=== PATIENT | male | born 1980 | race Caucasian/White ===

== ENCOUNTER 2018-01-17 14:40 | Observation (INO) | payer OTHER, SELFPAY ==
[2018-01-17 14:54] VITALS: BMI 19.2
[2018-01-17 15:00] VITALS: BP 131/88; PULSE 79; RESP 18; TEMP 36.8
[2018-01-17 15:11] VITALS: BP 131/88; PULSE 79; RESP 18; TEMP 36.8; O2SAT 99
--- NOTE | 2018-01-17 15:19 | HP.PCM_ITS ---
Problem List (1) Acute opioid withdrawal Status: Acute (2) Heroin dependence Status: Chronic (3) Methadone dependence Status: Chronic (4) Tobacco dependence Status: Chronic History of Present Illness Date of Admission: 01/17/18 Chief Complaint: Muscle cramps The patient is a 37 year old M with past medical history significant for heroin and methadone dependence presents with muscle cramps. Patient reports use of IV heroine as well as snorting methadone. For the past 10 days prior to admission patient was doing straight heroin. Patient presents with muscle cramps in addition to nausea and abdominal cramps as well as irritability and restless legs. On assessment of acute opioid withdrawal was made admitted to regular nursing floor for medical stabilization Past Medical History Past Medical History (Chronic Problems): Chronic Problems Heroin dependence (Chronic) Methadone dependence (Chronic) Tobacco dependence (Chronic) Surgical History: no surgical history Tobacco Use: Chew - *Family History Maternal History Items: No pertinent history Review of Systems Constitutional: Reports: Night Sweats HEENT: Denies: Head Aches, Sinus Congestion, Sinus Drainage Cardiovascular: Denies: Chest Pain, Orthopnea, Palpitations, Paroxysmal Noc. Dyspnea Respiratory: Denies: Cough, Shortness of breath at rest, Shortness of breath upon exertion, Sputum production Gastrointestinal: Reports: Abdominal Pain, Nausea Genitourinary: Denies: Dysuria, Frequency, Hematuria, Urgency Musculoskeletal: Reports: Muscle pain. Denies: Joint Pain, Joint Tenderness Skin: Denies: Rash Neurological: Denies: Focal weakness, Numbness, Tingling Psychiatric: Reports: Anxiety Hematologic/ Lymphatic: Denies: Easy Bruising, Easy Bleeding VTE Information - Inpt Only VTE Present on Admission: No VTE Mechan Device Prophylaxis: None VTE Pharm Prophylaxis ordered?: No Reason prophylaxis not ordered:: Treatment Not Indicated Patient Problems: Active and Suspected Problems Acute opioid withdrawal (Acute) Objective: GENERAL: cooperative but appears restless HEENT: Clear conjunctiva, moist oral mucosa NECK; supple, normal thyroid, no distended JVD. CHEST: Clear to auscultation bilaterally, HEART: Regular S1 S2, no audible murmurs ABDOMEN: soft, non-tender, normoactive bowel sounds, RECTAL: deferred EXTREMITIES: No edema, no clubbing, no cyanosis. SUPPORT ASSISTANT: Awake; no lateralizing signs. SKIN: No Rash - Physical Exam Vital Signs Temp Pulse Resp BP Pulse Ox 98.2 F 79 18 131/88 H 99 01/17/18 15:11 01/17/18 15:11 01/17/18 15:11 01/17/18 15:11 01/17/18 15:11 Oxygen Delivery Method Room Air Weight: 53.977 kg Body Mass Index (BMI) 19.2 Assessment/Plan All Active Problems Acute opioid withdrawal (Acute) Patient is a 37 year old gentleman with history of heroine and methadone dependence presented with acute opiate withdrawal 1. Acute opioid withdrawal patient has been admitted to regular nursing floor for medical stabilization using Subutex 2. Heroine dependence patient was counseled on cessation 3. Methadone dependence again patient was counseled on cessation 4. Tobacco dependence counseled on cessation, offered nicotine patch for tobacco cravings 5. DVT prophylaxis low risk did encourage early ambulation Code Visit Inpatient E&M: 70441 Init Hosp L3
[2018-01-17] MEDS: chlordiazePOXIDE 25 MG Capsule PO ×2 (15:47→21:18)
[2018-01-17] MEDS: Buprenorphine HCl 2 MG TAB.SUBL SL (15:47)
[2018-01-17 15:57] LABS: Absolute Lymphocyte Count 0.95 X10^3/ul (0.83-4.51); Absolute Neutrophil Count 6.8 X10^3/uL (2.0-7.7); Basophil# 0.02 X10^3/uL; Basophil% 0.2 % (0-1); Eosinophil# 0.14 X10^3/uL; Eosinophils% 1.6 % (0-5); Hematocrit 36.6 % (40-54); Hemoglobin 11.6 g/dl (13.0-16.5); Lymphocyte # 0.95 X10^3/ul (4.0); Lymphocyte % 11.1 % (19-41); Mean Corp Hgb Conc 31.7 g/gl (32-36); Mean Corpuscular Hgb 27.2 pg (27.0-32.0); Mean Corpuscular Volume 85.9 fL (80-94); Monocyte# 0.68 X10^3/uL; Monocyte% 7.9 % (0-10); Neutrophil # 6.77 X10^3/uL (2.7-7.7); Neutrophil % 79.1 % (47-70); Platelet Count 165 K/mm3 (150-450); RBC Distribution Width CV 12.6 % (11.6-14.6); RBC Distribution Width SD 38.7 fl (35.1-43.9); Red Blood Count 4.26 M/mm3 (4.6-6.2); White Blood Count 8.6 K/mm3 (4.4-11.0)
[2018-01-17 16:01] LABS: POSITIVE COUNT NO; POSITIVE DIFFERENTIAL NO; POSITIVE MORPHOLOGY NO
[2018-01-17 16:10] LABS: International Normalized Ratio 1.1; Prothrombin Time (Protime)PT. 14.4 SECONDS (11.7-14.9)
[2018-01-17 16:12] LABS: ALB/GLOB Ratio 0.9 RATIO (0.9-2.4); AST(SGOT) 12 U/L (15-37); Alanine Aminotransfer ALT/SGPT 20 U/L (16-61); Albumin, Serum 3.5 g/dL (3.2-5.0); Alkaline Phosphatase 85 U/L (45-117); Amylase 103 U/L (25-115); Anion Gap 3 (5-15); BUN 13 mg/dL (7-18); BUN/Creat Ratio 15.7 RATIO (10-20); Calcium,Total 8.7 mg/dL (8.5-10.1); Chloride 101 mmol/L (98-107); Creatinine, Serum 0.83 mg/dL (0.70-1.30); EST Glomerular Filtration Rate 111 mL/min (>60); Est Glom Filt Rate - Afr Amer 134 mL/min (>60); Estimated Creatinine Clearance 93.03 ml/min; Glucose 91 mg/dL (74-106); Lipase 176 U/L (73-393); Potassium 4.2 mmol/L (3.5-5.1); Protein, Total 7.5 g/dL (6.4-8.2); Sodium Level 138 mmol/L (136-145)
--- NOTE | 2018-01-17 16:54 | CHAPLAIN ---
Type of Pastoral Visit _x__ Initial Visit ___ Follow-up Visit ___ On-call Visit ___ General Patient Visit ___ Spiritual Assessment ___ Family Conference ___ Bereavement ___ Rapid Response ___ Code Blue ___ Other (describe below) Pastoral Care Referral From x___ Patient ___ Family _x__ Nurse ___ Physician ___ Director Of Consumer Affairs ___ Quick Sketch Artist ___ Other (describe below) Sacrament/Intervention _x__ Active listening ___ Anointing ___ Tenriism ___ Bereavement ___ Communion _x__ Elen exploration ___ _x__ Life review _x__ Prayer ___ Reconciliation ___ Sacrament of Sick _x__ Supportive presence ___ Wedding ___ Other (describe below) Pastoral Comments patient has plans to go to a [facility] rehab [facility] where his brother has successfully had recovery; pt is open to spiritual support
[2018-01-17 17:37] VITALS: BP 114/86; PULSE 72; RESP 16; TEMP 37.1
[2018-01-17 17:56] LABS: Mucous, Urine 0 SEEN /hpf (<or=2+); Red Blood Cells-Urine 0 SEEN /hpf (0-5); Squamous Epithelial Cells - UA 0 SEEN /hpf (0-5); White Blood Cells 0 SEEN /hpf (0-5)
[2018-01-17 18:02] LABS: Color, Urine Yellow (Yellow); Glucose, Dipstick Normal (Normal); Ketone-Dipstick Negative (Negative); Leukocyte Esterase-Dipstick Negative /ul (Negative); Nitrite-Dipstick Negative (Negative); Occult Blood-Urine Negative /ul (Negative); Protein-Dipstick 15 mg/dl (Negative); Urine Bilirubin Dipstick Negative (Negative); Urine Clarity Clear (Clear); Urine Urobilinogen Normal (Normal)
[2018-01-17 18:17] LABS: Bacteria RARE /hpf (None Seen)
[2018-01-17] MEDS: Methocarbamol 750 MG Tablet PO (18:31)
[2018-01-17 18:51] LABS: Amphetamine Urine VISTA NEGATIVE (<1000 ng/mL); Barbiturate Urine VISTA NEGATIVE (< 200 ng/mL); Benzodiazepine Urine VISTA NEGATIVE (< 200 ng/mL); Cocaine Urine VISTA NEGATIVE (< 300 ng/mL); Ecstacy Urine VISTA NEGATIVE (< 500 ng/mL); Methadone Urine VISTA NEGATIVE (< 300 ng/mL); PCP Urine VISTA NEGATIVE (< 25 ng/mL); THC Urine VISTA NEGATIVE (< 50 ng/mL); Vista UDS pH Range 7
[2018-01-17 21:06] VITALS: BP 125/96; PULSE 71; PULSE 72; RESP 16; TEMP 36.7; TEMP 36.8; O2SAT 100
[2018-01-17] MEDS: traZODone 50 MG Tablet PO (21:18)
[2018-01-18] VITALS (9 sets, daily range): BP systolic 106–117; BP diastolic 69–89; PULSE 57–89; RESP 14–18; TEMP 36.5–36.8; O2SAT 98–100
[2018-01-18] MEDS: hydrOXYzine PAM 25 MG Capsule 50 MG PO (00:04)
[2018-01-18] MEDS: Buprenorphine HCl 2 MG TAB.SUBL SL ×3 (00:04→17:00)
[2018-01-18] MEDS: chlordiazePOXIDE 25 MG Capsule PO ×5 (00:05→21:30)
[2018-01-18] MEDS: Methocarbamol 750 MG Tablet PO ×2 (00:05→21:29)
[2018-01-18] MEDS: Tuberculin,Purif.prot.deriv. 50 TU/ML Vial 5 ML ID (09:51)
--- NOTE | 2018-01-18 10:52 | PCM.PN.HOSP ---
Patient Problems: Active and Suspected Problems Acute opioid withdrawal (Acute) Subjective: The patient reports some muscle cramping last night but better today Objective: Pleasant thin gentleman no acute distress Vitals/I&O's: Vital Signs Temp Pulse Resp BP Pulse Ox 97.7 F L 57 L 16 117/89 H 99 01/18/18 09:08 01/18/18 09:08 01/18/18 09:08 01/18/18 09:08 01/18/18 09:06 Oxygen Delivery Method Room Air Weight: 118 lb 15.983 oz Body Mass Index (BMI) 19.2 Intake and Output for Last 24 Hours 01/16/18 01/17/18 01/18/18 23:59 23:59 23:59 Intake Total 500 / 500 700 / 700 Balance 500 / 500 700 / 700 General: Alert, Oriented x3 Oral: Moist Mucosa Neck: No JVD Lungs: Clear to auscultation Cardiovascular: Regular rate, Regular Rhythm, - - No murmurs Abdomen: Soft, Non Tender, Non-Distended Extremities: - - Pain, no edema, sites of injection bilateral antecubital's, no erythema Laboratory Results 01/17/18 15:43: WBC 8.6, RBC 4.26 L, Hgb 11.6 L, Hct 36.6 L, MCV 85.9, MCH 27.2, MCHC 31.7 L, RDW 12.6, RDW Differential 38.7, Plt Count 165, MPV 10.0, Immature Gran % (Auto) 0.100, Neut % (Auto) 79.1 H, Lymph % (Auto) 11.1 L, Mcleod % (Auto) 7.9, Eos % (Auto) 1.6, Baso % (Auto) 0.2, Absolute Neuts (auto) 6.8, Absolute Lymphs (auto) 0.95, Total Counted Not Reportable 01/17/18 15:43: PT 14.4, INR 1.1 01/17/18 15:43: Sodium 138, Potassium 4.2, Chloride 101, Carbon Dioxide 34.0 H, Anion Gap 3 L, BUN 13, Creatinine 0.83, Estim Creat Clear Calc 93.03, Est GFR (MDRD) Af Amer 134, Est GFR (MDRD) Non-Af 111, BUN/Creatinine Ratio 15.7, Glucose 91, Calcium 8.7, Total Bilirubin 0.30, AST 12 L, ALT 20, Alkaline Phosphatase 85, Total Protein 7.5, Albumin 3.5, Globulin 4.0, Albumin/Globulin Ratio 0.9, Amylase 103, Lipase 176 01/17/18 15:43: Ethyl Alcohol 10.0 01/17/18 17:45: Urine Color Yellow, Urine Clarity Clear, Urine pH 7.0, Ur Specific [place] 1.010, Urine Protein 15 H, Urine Glucose (UA) Normal, Urine Ketones Negative, Urine Occult Blood Negative, Urine Nitrite Negative, Urine Bilirubin Negative, Urine Urobilinogen Normal, Ur Leukocyte Esterase Negative, Urine RBC 0 SEEN, Urine WBC 0 SEEN, Ur Squamous Epith Cells 0 SEEN, Urine Bacteria RARE, Urine Mucus 0 SEEN 01/17/18 18:35: Urine Opiates Screen POSITIVE H, Urine Methadone Screen NEGATIVE, Ur Barbiturates Screen NEGATIVE, Ur Phencyclidine Scrn NEGATIVE, Ur Amphetamines Screen NEGATIVE, U Methamphetamin-MDMA NEGATIVE, U Benzodiazepines Scrn NEGATIVE, Urine Cocaine Screen NEGATIVE, U Cannabinoids Screen NEGATIVE, Ur Drug Screen Comment Current Medications Acetaminophen (Tylenol) 500 mg PO Q4H PRN PRN PRN Reason: Temp > 100.4 F Al Hydroxide/Mg Hydroxide (Mylanta Ii) 30 ml PO Q6H PRN PRN PRN Reason: dyspesia Bisacodyl (Dulcolax) 10 mg RECTAL DAILY PRN PRN Reason: Constipation Buprenorphine HCl (Buprenorphine Hcl) 4 mg SL Q8H [facility] PRN Reason: Taper Stop: 01/20/18 19:59 Last Admin: 01/18/18 09:10 Dose: 4 mg Chlordiazepoxide (Librium) 25 mg PO Q4H [facility] Stop: 01/18/18 12:01 Last Admin: 01/18/18 09:10 Dose: 25 mg Chlordiazepoxide (Librium) 25 mg PO Q6H PRN PRN PRN Reason: Moderate-Severe Anxiety Clonidine (Catapres) 0.1 mg PO Q2H PRN PRN PRN Reason: Hot/Cold Sweats or Anxiety Dicyclomine HCl (Bentyl) 20 mg PO Q6H PRN PRN PRN Reason: Abdomnial Discomfort Hydroxyzine HCl (Vistaril Vial) 50 mg IM Q6H PRN PRN PRN Reason: Breakthrough Anxiety Hydroxyzine Pamoate (Vistaril Pamoate Capsule) 50 mg PO Q6H PRN PRN PRN Reason: Mild Anxiety Last Admin: 01/18/18 00:04 Dose: 50 mg Ibuprofen (Motrin) 600 mg PO Q8H PRN PRN PRN Reason: Mild-Moderate Pain (1-5/10) Loperamide HCl (Imodium) 2 - 4 mg PO UD PRN PRN Reason: LOOSE STOOLS Magnesium Hydroxide (Milk Of Magnesia) 30 ml PO DAILY PRN PRN PRN Reason: Constipation Methocarbamol (Methocarbamol) 750 mg PO Q6H PRN PRN PRN Reason: Muscle Aches Last Admin: 01/18/18 00:05 Dose: 750 mg Nicotine (Nicoderm Cq (Pbkc)) 21 mg TRANSDERM. DAILY [facility] Last Admin: 01/18/18 09:10 Dose: 21 mg Nutritional Formula (Lactose Free) (Ensure Enlive) 120 ml PO 4X/DAY [facility] Last Admin: 01/18/18 09:10 Dose: 120 ml Ondansetron HCl (Zofran Odt) 4 mg PO Q6H PRN PRN PRN Reason: NAUSEA Pramipexole Dihydrochloride (Mirapex) 0.25 mg PO Q12H PRN PRN PRN Reason: Restless Legs Senna (Senokot) 1 tablet PO QHS PRN PRN Reason: Constipation Trazodone HCl (Desyrel) 50 mg PO QHS [facility] Last Admin: 01/17/18 21:18 Dose: 50 mg Medical Necessity - Tobacco Use Smoking Status: Never smoker Tobacco Use: Chew Assessment/Plan All Active Problems Acute opioid withdrawal (Acute) 37-year-old male with past medical history significant for IV heroin and methadone intranasal dependence, presented with muscle camps and acute opioid withdrawal. For the past 10 days prior to admission the patient was off of methadone and using just straight IV heroin. He presented with acute opioid withdrawal, symptoms including nausea, abdominal cramps, restless legs, leg cramping. He has been placed on medical stabilization protocol and is improved. He has not had HIV or hep C testing; he agrees to hep C testing today. admit labs reviewed 1. Acute opiate withdrawal 2. Chronic opioid dependence, heroin and methadone 3. Tobacco dependence Patient doing well with medical stabilization protocol. We will continue current therapy. Hep C antibody Mobilization Code Visit Inpatient E&M: 69020 Subs Hosp L2
--- NOTE | 2018-01-18 10:56 | PN_ITS ---
Patient Problems: Active and Suspected Problems Acute opioid withdrawal (Acute) Subjective: The patient reports some muscle cramping last night but better today Objective: Pleasant thin gentleman no acute distress Vitals/I&O's: Vital Signs Temp Pulse Resp BP Pulse Ox 97.7 F L 57 L 16 117/89 H 99 01/18/18 09:08 01/18/18 09:08 01/18/18 09:08 01/18/18 09:08 01/18/18 09:06 Oxygen Delivery Method Room Air Weight: 118 lb 15.983 oz Body Mass Index (BMI) 19.2 Intake and Output for Last 24 Hours 01/16/18 01/17/18 01/18/18 23:59 23:59 23:59 Intake Total 500 / 500 700 / 700 Balance 500 / 500 700 / 700 General: Alert, Oriented x3 Oral: Moist Mucosa Neck: No JVD Lungs: Clear to auscultation Cardiovascular: Regular rate, Regular Rhythm, - - No murmurs Abdomen: Soft, Non Tender, Non-Distended Extremities: - - Pain, no edema, sites of injection bilateral antecubital's, no erythema Laboratory Results 01/17/18 15:43: WBC 8.6, RBC 4.26 L, Hgb 11.6 L, Hct 36.6 L, MCV 85.9, MCH 27.2 , MCHC 31.7 L, RDW 12.6, RDW Differential 38.7, Plt Count 165, MPV 10.0, Immature Gran % (Auto) 0.100, Neut % (Auto) 79.1 H, Lymph % (Auto) 11.1 L, [place] % (Auto) 7.9, Eos % (Auto) 1.6, Baso % (Auto) 0.2, Absolute Neuts (auto) 6.8, Absolute Lymphs (auto) 0.95, Total Counted Not Reportable 01/17/18 15:43: PT 14.4, INR 1.1 01/17/18 15:43: Sodium 138, Potassium 4.2, Chloride 101, Carbon Dioxide 34.0 H, Anion Gap 3 L, BUN 13, Creatinine 0.83, Estim Creat Clear Calc 93.03, Est GFR ( MDRD) Af Amer 134, Est GFR (MDRD) Non-Af 111, BUN/Creatinine Ratio 15.7, Glucose 91, Calcium 8.7, Total Bilirubin 0.30, AST 12 L, ALT 20, Alkaline Phosphatase 85, Total Protein 7.5, Albumin 3.5, Globulin 4.0, Albumin/Globulin Ratio 0.9, Amylase 103, Lipase 176 01/17/18 15:43: Ethyl Alcohol 10.0 01/17/18 17:45: Urine Color Yellow, Urine Clarity Clear, Urine pH 7.0, Ur Specific [place] 1.010, Urine Protein 15 H, Urine Glucose (UA) Normal, Urine Ketones Negative, Urine Occult Blood Negative, Urine Nitrite Negative, Urine Bilirubin Negative, Urine Urobilinogen Normal, Ur Leukocyte Esterase Negative, Urine RBC 0 SEEN, Urine WBC 0 SEEN, Ur Squamous Epith Cells 0 SEEN, Urine Bacteria RARE, Urine Mucus 0 SEEN 01/17/18 18:35: Urine Opiates Screen POSITIVE H, Urine Methadone Screen NEGATIVE , Ur Barbiturates Screen NEGATIVE, Ur Phencyclidine Scrn NEGATIVE, Ur Amphetamines Screen NEGATIVE, U Methamphetamin-MDMA NEGATIVE, U Benzodiazepines Scrn NEGATIVE, Urine Cocaine Screen NEGATIVE, U Cannabinoids Screen NEGATIVE, Ur Drug Screen Comment Current Medications Acetaminophen (Tylenol) 500 mg PO Q4H PRN PRN PRN Reason: Temp > 100.4 F Al Hydroxide/Mg Hydroxide (Mylanta Ii) 30 ml PO Q6H PRN PRN PRN Reason: dyspesia Bisacodyl (Dulcolax) 10 mg RECTAL DAILY PRN PRN Reason: Constipation Buprenorphine HCl (Buprenorphine Hcl) 4 mg SL Q8H [facility] PRN Reason: Taper Stop: 01/20/18 19:59 Last Admin: 01/18/18 09:10 Dose: 4 mg Chlordiazepoxide (Librium) 25 mg PO Q4H [facility] Stop: 01/18/18 12:01 Last Admin: 01/18/18 09:10 Dose: 25 mg Chlordiazepoxide (Librium) 25 mg PO Q6H PRN PRN PRN Reason: Moderate-Severe Anxiety Clonidine (Catapres) 0.1 mg PO Q2H PRN PRN PRN Reason: Hot/Cold Sweats or Anxiety Dicyclomine HCl (Bentyl) 20 mg PO Q6H PRN PRN PRN Reason: Abdomnial Discomfort Hydroxyzine HCl (Vistaril Vial) 50 mg IM Q6H PRN PRN PRN Reason: Breakthrough Anxiety Hydroxyzine Pamoate (Vistaril Pamoate Capsule) 50 mg PO Q6H PRN PRN PRN Reason: Mild Anxiety Last Admin: 01/18/18 00:04 Dose: 50 mg Ibuprofen (Motrin) 600 mg PO Q8H PRN PRN PRN Reason: Mild-Moderate Pain (1-5/10) Loperamide HCl (Imodium) 2 - 4 mg PO UD PRN PRN Reason: LOOSE STOOLS Magnesium Hydroxide (Milk Of Magnesia) 30 ml PO DAILY PRN PRN PRN Reason: Constipation Methocarbamol (Methocarbamol) 750 mg PO Q6H PRN PRN PRN Reason: Muscle Aches Last Admin: 01/18/18 00:05 Dose: 750 mg Nicotine (Nicoderm Cq (Pbkc)) 21 mg TRANSDERM. DAILY [facility] Last Admin: 01/18/18 09:10 Dose: 21 mg Nutritional Formula (Lactose Free) (Ensure Enlive) 120 ml PO 4X/DAY [facility] Last Admin: 01/18/18 09:10 Dose: 120 ml Ondansetron HCl (Zofran Odt) 4 mg PO Q6H PRN PRN PRN Reason: NAUSEA Pramipexole Dihydrochloride (Mirapex) 0.25 mg PO Q12H PRN PRN PRN Reason: Restless Legs Senna (Senokot) 1 tablet PO QHS PRN PRN Reason: Constipation Trazodone HCl (Desyrel) 50 mg PO QHS [facility] Last Admin: 01/17/18 21:18 Dose: 50 mg Medical Necessity - Tobacco Use Smoking Status: Never smoker Tobacco Use: Chew Assessment/Plan All Active Problems Acute opioid withdrawal (Acute) 37-year-old male with past medical history significant for IV heroin and methadone intranasal dependence, presented with muscle camps and acute opioid withdrawal. For the past 10 days prior to admission the patient was off of methadone and using just straight IV heroin. He presented with acute opioid withdrawal, symptoms including nausea, abdominal cramps, restless legs, leg cramping. He has been placed on medical stabilization protocol and is improved. He has not had HIV or hep C testing; he agrees to hep C testing today. admit labs reviewed 1. Acute opiate withdrawal 2. Chronic opioid dependence, heroin and methadone 3. Tobacco dependence Patient doing well with medical stabilization protocol. We will continue current therapy. Hep C antibody Mobilization Code Visit Inpatient E&M: 66354 Subs Hosp L2
[2018-01-18] MEDS: traZODone 50 MG Tablet PO (21:29)
[2018-01-19] VITALS (7 sets, daily range): BP systolic 99–117; BP diastolic 58–78; PULSE 71–83; RESP 16–20; TEMP 36.6–37; O2SAT 99–100
[2018-01-19] MEDS: Buprenorphine HCl 2 MG TAB.SUBL SL ×3 (00:23→21:11)
--- NOTE | 2018-01-19 11:17 | PCM.PN.HOSP ---
Patient Problems: Active and Suspected Problems Acute opioid withdrawal (Acute) Subjective: Patient feeling overall better. Shaking and leg cramps diminished. Tolerating diet. Appetite better. Objective: NAD Vitals/I&O's: Vital Signs Temp Pulse Resp BP Pulse Ox 97.9 F 71 20 H 99/69 99 01/19/18 08:47 01/19/18 08:47 01/19/18 08:47 01/19/18 08:47 01/19/18 08:30 Oxygen Delivery Method Room Air Weight: 118 lb 15.983 oz Body Mass Index (BMI) 19.2 Intake and Output for Last 24 Hours 01/17/18 01/18/18 01/19/18 23:59 23:59 23:59 Intake Total 500 / 500 1460 / 1460 360 / 360 Balance 500 / 500 1460 / 1460 360 / 360 General: Alert, Oriented x3, Cooperative HEENT: PERRLA, EOMI Oral: Moist Mucosa Neck: No JVD Lungs: Clear to auscultation Cardiovascular: Regular rate, Regular Rhythm, Normal S1, Normal S2 Abdomen: Bowel Sounds Present, No Hepato-splenomegaly Extremities: No edema Current Medications Acetaminophen (Tylenol) 500 mg PO Q4H PRN PRN PRN Reason: Temp > 100.4 F Al Hydroxide/Mg Hydroxide (Mylanta Ii) 30 ml PO Q6H PRN PRN PRN Reason: dyspesia Bisacodyl (Dulcolax) 10 mg RECTAL DAILY PRN PRN Reason: Constipation Buprenorphine HCl (Buprenorphine Hcl) 2 mg SL Q12H [facility] PRN Reason: Taper Stop: 01/20/18 19:59 Last Admin: 01/19/18 08:41 Dose: 2 mg Chlordiazepoxide (Librium) 25 mg PO Q6H PRN PRN PRN Reason: Moderate-Severe Anxiety Last Admin: 01/18/18 21:30 Dose: 25 mg Clonidine (Catapres) 0.1 mg PO Q2H PRN PRN PRN Reason: Hot/Cold Sweats or Anxiety Dicyclomine HCl (Bentyl) 20 mg PO Q6H PRN PRN PRN Reason: Abdomnial Discomfort Hydroxyzine HCl (Vistaril Vial) 50 mg IM Q6H PRN PRN PRN Reason: Breakthrough Anxiety Hydroxyzine Pamoate (Vistaril Pamoate Capsule) 50 mg PO Q6H PRN PRN PRN Reason: Mild Anxiety Last Admin: 01/18/18 00:04 Dose: 50 mg Ibuprofen (Motrin) 600 mg PO Q8H PRN PRN PRN Reason: Mild-Moderate Pain (1-5/10) Loperamide HCl (Imodium) 2 - 4 mg PO UD PRN PRN Reason: LOOSE STOOLS Magnesium Hydroxide (Milk Of Magnesia) 30 ml PO DAILY PRN PRN PRN Reason: Constipation Methocarbamol (Methocarbamol) 750 mg PO Q6H PRN PRN PRN Reason: Muscle Aches Last Admin: 01/18/18 21:29 Dose: 750 mg Nicotine (Nicoderm Cq (Pbkc)) 21 mg TRANSDERM. DAILY [facility] Last Admin: 01/19/18 08:42 Dose: 21 mg Nutritional Formula (Lactose Free) (Ensure Enlive) 120 ml PO 4X/DAY [facility] Last Admin: 01/19/18 10:59 Dose: 120 ml Ondansetron HCl (Zofran Odt) 4 mg PO Q6H PRN PRN PRN Reason: NAUSEA Pramipexole Dihydrochloride (Mirapex) 0.25 mg PO Q12H PRN PRN PRN Reason: Restless Legs Senna (Senokot) 1 tablet PO QHS PRN PRN Reason: Constipation Trazodone HCl (Desyrel) 50 mg PO QHS [facility] Last Admin: 01/18/18 21:29 Dose: 50 mg Medical Necessity - Tobacco Use Smoking Status: Never smoker Tobacco Use: Chew Assessment/Plan All Active Problems Acute opioid withdrawal (Acute) 37-year-old male with past medical history significant for IV heroin and methadone intranasal dependence, presented with muscle camps and acute opioid withdrawal. For the past 10 days prior to admission the patient was off of methadone and using just straight IV heroin. He presented with acute opioid withdrawal, symptoms including nausea, abdominal cramps, restless legs, leg cramping. He has been placed on medical stabilization protocol and is improved. He has not had HIV or hep C testing. Admitting laboratories to include CBC, CMP, urinalysis were noncontributory. Hepatitis C antibody pending 1. Acute opiate withdrawal 2. Chronic opioid dependence, heroin and methadone 3. Tobacco dependence Patient doing well with medical stabilization protocol. We will continue current therapy. Result hepatitis C antibody Patient prefers anonymous HIV testing, [id number] kit discussed He will conclude program tomorrow and then plans transfer to inpatient rehab facility Code Visit Inpatient E&M: 50560 Subs Hosp L2
--- NOTE | 2018-01-19 11:21 | PN_ITS ---
Patient Problems: Active and Suspected Problems Acute opioid withdrawal (Acute) Subjective: Patient feeling overall better. Shaking and leg cramps diminished. Tolerating diet. Appetite better. Objective: NAD Vitals/I&O's: Vital Signs Temp Pulse Resp BP Pulse Ox 97.9 F 71 20 H 99/69 99 01/19/18 08:47 01/19/18 08:47 01/19/18 08:47 01/19/18 08:47 01/19/18 08:30 Oxygen Delivery Method Room Air Weight: 118 lb 15.983 oz Body Mass Index (BMI) 19.2 Intake and Output for Last 24 Hours 01/17/18 01/18/18 01/19/18 23:59 23:59 23:59 Intake Total 500 / 500 1460 / 1460 360 / 360 Balance 500 / 500 1460 / 1460 360 / 360 General: Alert, Oriented x3, Cooperative HEENT: PERRLA, EOMI Oral: Moist Mucosa Neck: No JVD Lungs: Clear to auscultation Cardiovascular: Regular rate, Regular Rhythm, Normal S1, Normal S2 Abdomen: Bowel Sounds Present, No Hepato-splenomegaly Extremities: No edema Current Medications Acetaminophen (Tylenol) 500 mg PO Q4H PRN PRN PRN Reason: Temp > 100.4 F Al Hydroxide/Mg Hydroxide (Mylanta Ii) 30 ml PO Q6H PRN PRN PRN Reason: dyspesia Bisacodyl (Dulcolax) 10 mg RECTAL DAILY PRN PRN Reason: Constipation Buprenorphine HCl (Buprenorphine Hcl) 2 mg SL Q12H [facility] PRN Reason: Taper Stop: 01/20/18 19:59 Last Admin: 01/19/18 08:41 Dose: 2 mg Chlordiazepoxide (Librium) 25 mg PO Q6H PRN PRN PRN Reason: Moderate-Severe Anxiety Last Admin: 01/18/18 21:30 Dose: 25 mg Clonidine (Catapres) 0.1 mg PO Q2H PRN PRN PRN Reason: Hot/Cold Sweats or Anxiety Dicyclomine HCl (Bentyl) 20 mg PO Q6H PRN PRN PRN Reason: Abdomnial Discomfort Hydroxyzine HCl (Vistaril Vial) 50 mg IM Q6H PRN PRN PRN Reason: Breakthrough Anxiety Hydroxyzine Pamoate (Vistaril Pamoate Capsule) 50 mg PO Q6H PRN PRN PRN Reason: Mild Anxiety Last Admin: 01/18/18 00:04 Dose: 50 mg Ibuprofen (Motrin) 600 mg PO Q8H PRN PRN PRN Reason: Mild-Moderate Pain (1-5/10) Loperamide HCl (Imodium) 2 - 4 mg PO UD PRN PRN Reason: LOOSE STOOLS Magnesium Hydroxide (Milk Of Magnesia) 30 ml PO DAILY PRN PRN PRN Reason: Constipation Methocarbamol (Methocarbamol) 750 mg PO Q6H PRN PRN PRN Reason: Muscle Aches Last Admin: 01/18/18 21:29 Dose: 750 mg Nicotine (Nicoderm Cq (Pbkc)) 21 mg TRANSDERM. DAILY [facility] Last Admin: 01/19/18 08:42 Dose: 21 mg Nutritional Formula (Lactose Free) (Ensure Enlive) 120 ml PO 4X/DAY [facility] Last Admin: 01/19/18 10:59 Dose: 120 ml Ondansetron HCl (Zofran Odt) 4 mg PO Q6H PRN PRN PRN Reason: NAUSEA Pramipexole Dihydrochloride (Mirapex) 0.25 mg PO Q12H PRN PRN PRN Reason: Restless Legs Senna (Senokot) 1 tablet PO QHS PRN PRN Reason: Constipation Trazodone HCl (Desyrel) 50 mg PO QHS [facility] Last Admin: 01/18/18 21:29 Dose: 50 mg Medical Necessity - Tobacco Use Smoking Status: Never smoker Tobacco Use: Chew Assessment/Plan All Active Problems Acute opioid withdrawal (Acute) 37-year-old male with past medical history significant for IV heroin and methadone intranasal dependence, presented with muscle camps and acute opioid withdrawal. For the past 10 days prior to admission the patient was off of methadone and using just straight IV heroin. He presented with acute opioid withdrawal, symptoms including nausea, abdominal cramps, restless legs, leg cramping. He has been placed on medical stabilization protocol and is improved. He has not had HIV or hep C testing. Admitting laboratories to include CBC, CMP, urinalysis were noncontributory. Hepatitis C antibody pending 1. Acute opiate withdrawal 2. Chronic opioid dependence, heroin and methadone 3. Tobacco dependence Patient doing well with medical stabilization protocol. We will continue current therapy. Result hepatitis C antibody Patient prefers anonymous HIV testing, [id number] kit discussed He will conclude program tomorrow and then plans transfer to inpatient rehab facility Code Visit Inpatient E&M: 28637 Subs Hosp L2
[2018-01-19] MEDS: traZODone 50 MG Tablet PO (21:11)
[2018-01-20 04:49] VITALS: BP 112/70; PULSE 80; RESP 16; TEMP 36.7; O2SAT 99
[2018-01-20 08:34] VITALS: BP 104/80; PULSE 75; RESP 18; TEMP 36.7
[2018-01-20] MEDS: Buprenorphine HCl 2 MG TAB.SUBL SL (08:36)
--- NOTE | 2018-01-20 10:09 | DCINST_ITS ---
- Discharge Diagnoses Current Active Problems: Current Active and Chronic Problems Acute opioid withdrawal (Acute) Heroin dependence (Chronic) Methadone dependence (Chronic) Tobacco dependence (Chronic) You will use the following diet at home:: No restrictions Your food should be the consistency of: Regular Your liquids should be the consistency of: Regular/Thin Discharge Activity: Return to Normal Activity Allergies/Adverse Reactions: Allergies codeine Adverse Reaction (Verified 01/17/18 15:30) Rash Primary Care Physician: Care Physician,No Primary [Primary Care Provider] - Test Results: Test results from this visit will be discussed in further detail at your follow- up appointment, if applicable.
[2018-01-20 11:37] LABS: Hep C Antibodies 0.2 s/co ratio (0.0-0.9)
--- NOTE | 2018-01-22 19:33 | PCM.DC.SUM ---
Discharge Date and Diagnosis Date of Admission: 01/17/18 Date of Discharge: 01/20/18 - Primary Discharge Diagnosis #1 acute opiate withdrawal #2 chronic opioid dependence - Secondary Discharge Diagnosis Chronic Problems Heroin dependence (Chronic) Methadone dependence (Chronic) Tobacco dependence (Chronic) Hospital Course and Treatment Operations: None Procedures: None Summary of Care Provided: The patient is a 37 year old M who was directly admitted into the medical stabilization program at [facility] with a chief complaint of active opiate withdrawal. Patient had been using heroin and methadone and for the past 10 days prior to admission had been doing straight heroin. He had been using heroin IV and snorting methadone. Patient presented with muscle cramps and nausea and abdominal cramps with irritability and restless legs. Patient was admitted into the medical stabilization program on MedSurg 3, order sets were entered using the medical stabilization protocol order sets, patient did well during his hospitalization and there were no complications. On 01/20/18, patient was seen and examined and felt to be in stable condition for discharge. Patient was to be admitted into a long-term opiate addiction treatment center. Discharge Activity: Return to Normal Activity Primary Care Physician: Care Physician,No Primary [Primary Care Provider] - Disposition: Patient opiate treatment center Minutes spent on discharge:: 31 Patient Condition:: Stable Medical Necessity - Tobacco Use Smoking Status: Never smoker Tobacco Use: Chew Meaningful Use Info Meaningful Use Diagnoses (Choose all that apply): None applicable Code Visit Inpatient E&M: 26350 Disch Hosp
--- NOTE | 2018-01-22 19:37 | DS.PCM_ITS ---
Discharge Date and Diagnosis Date of Admission: 01/17/18 Date of Discharge: 01/20/18 - Primary Discharge Diagnosis #1 acute opiate withdrawal #2 chronic opioid dependence - Secondary Discharge Diagnosis Chronic Problems Heroin dependence (Chronic) Methadone dependence (Chronic) Tobacco dependence (Chronic) Hospital Course and Treatment Operations: None Procedures: None Summary of Care Provided: The patient is a 37 year old M who was directly admitted into the medical stabilization program at [facility] with a chief complaint of active opiate withdrawal. Patient had been using heroin and methadone and for the past 10 days prior to admission had been doing straight heroin. He had been using heroin IV and snorting methadone. Patient presented with muscle cramps and nausea and abdominal cramps with irritability and restless legs. Patient was admitted into the medical stabilization program on MedSurg 3, order sets were entered using the medical stabilization protocol order sets, patient did well during his hospitalization and there were no complications. On 01/20/18 , patient was seen and examined and felt to be in stable condition for discharge. Patient was to be admitted into a long-term opiate addiction treatment center. Discharge Activity: Return to Normal Activity Primary Care Physician: Care Physician,No Primary [Primary Care Provider] - Disposition: Patient opiate treatment center Minutes spent on discharge:: 31 Patient Condition:: Stable Medical Necessity - Tobacco Use Smoking Status: Never smoker Tobacco Use: Chew Meaningful Use Info Meaningful Use Diagnoses (Choose all that apply): None applicable Code Visit Inpatient E&M: 60691 Disch Hosp
== END 2018-01-20 11:35 | disposition home or self-care (01) | DRG 897 ==
PROVIDERS: Internal Medicine; Admitting Provider Internal Medicine; Referring Provider Internal Medicine; Visit Provider Internal Medicine
DX: F11.23 Opioid dependence with withdrawal (principal); F17.220 Nicotine dependence, chewing tobacco, uncomplicated
CPT/HCPCS: 36415; 80053; 80307; 80320; 81001; 82150; 83690; 85025; 85610; 86803; 97802; 99218; G0378; G0379; G0480